=== PATIENT | male | born 1980 | race American Indian/Alaskan Native ===

== ENCOUNTER 2023-11-07 12:27 | Emergency (ER) | payer OTHER ==
[~2023-11-07] VITALS: Ht 175.3 cm; Wt 84.3 kg
[2023-11-07] MEDS ORDERED: CEPHALEXIN MONOHYDRATE 500 MG CAP PO ONE (14:00)
[2023-11-07] MEDS ORDERED: CEPHALEXIN500 M1 PO (15:16)
[2023-11-07] MEDS ORDERED: HYDROCODON-ACE1 EA11 PO (15:16)
[2023-11-07 15:31] VITALS: BP 144/93
== END 2023-11-07 15:28 | disposition home or self-care (01) ==
LOC: ED 12:27
DX: S61.012A Laceration without foreign body of left thumb without damage to nail, initial encounter (principal); W27.0XXA Contact with workbench tool, initial encounter
CPT/HCPCS: 12001; 73140; 99283-25; A9270